=== PATIENT | male | born 1945 | race Caucasian/White ===

== ENCOUNTER 2017-08-09 11:00 | Outpatient (RCR) | payer MEDICARE ==
[~2017-08-09 11:00] MED LIST: AMIODARONE HCL200 MG PO; ANDROGEL2.5 GM TOP; ASPIRIN EC81 MG PO; ATORVASTATIN CA40 MG PO; BUPROPION HCL100 MG PO; CELEBREX200 MG PO; CLONIDINE HCL0.1 MG PO; DAILY VITAMIN1 EAC3 PO; HYDROCHLOROTHIA25 MG PO; LEVOTHYROXINE25 MCG PO; LISINOPRIL10 MG PO; LORATADINE10 M1 PO; LYRICA150 MG PO; MULTAQ400 MG PO; MULTIVITAMINS1 EAC7 PO; NEXIUM40 MG PO; NORCO 7.5-3251 EACH PO; PANTOPRAZOLE SO40 MG PO; PRADAXA75 MG PO; ZOLPIDEM TARTRAT5 MG PO
== END 2017-08-28 ==
LOC: PT 11:00
PROVIDERS: ATTEND Specialist
DX: Z96.641 Presence of right artificial hip joint (principal); Z47.1 Aftercare following joint replacement surgery; M62.81 Muscle weakness (generalized); R26.2 Difficulty in walking, not elsewhere classified
CPT/HCPCS: 97110 ×4; G8978; G8979

== ENCOUNTER → 2018-09-25 | Outpatient (CLI) | payer MEDICARE ==
--- NOTE | 2018-09-26 09:11 | Diagnostic Imaging Report ---
MRI of the right ankle without contrast. MRI of the right foot without contrast. History: Ankle pain. Foot pain. Metatarsalgia. Peroneal tendinitis. Decreased range of motion. Pain worse with working out. Technique: Multiplanar multisequence MRI of the right ankle without contrast. Multiplanar multisequence MRI of the right foot without contrast. Comparison: None. Findings: Ankle MRI: Achilles tendon and plantar fascia: The Achilles tendon and plantar fascia are normal. There is mild retrocalcaneal bursitis is seen on sagittal image 12. Cartilage and bone: Negative for osteochondral lesion of the tibiotalar and subtalar joints. Negative for fracture, osteonecrosis, or stress related edema. Medial ankle: There is scarring of the deltoid ligament complex. The majority of the fibers are intact. There is a mild amount of adjacent soft tissue edema and mild bone marrow edema in the medial malleolus which is thought to be stress related. There is distal posterior tibial tendinosis with a mild amount of fluid surrounding the distal tendon. No tear or retraction is seen. The remainder the medial flexor tendons are intact. Lateral ankle: There is scarring and attenuation of the anterior talofibular and calcaneofibular ligaments. The posterior talofibular ligaments are intact. The syndesmotic ligaments are intact. 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 The peroneus longus tendon is intact. The retinacular tissues are intact. There is no subluxation or full-thickness tear. Anterior ankle: The anterior extensor tendons are normal. Other findings: There is a tibiotalar joint effusion and synovitis. There is partial obliteration of the fat/scarring within the sinus tarsi with adjacent soft tissue edema projecting anteriorly and dorsally. 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 Foot MRI: There is bone marrow edema in the proximal third phalanx with a mild amount of adjacent soft tissue edema. No cortical fracture is seen. This is likely due to a stress response. Mild bone marrow edema is in the adjacent proximal second toe proximal phalanx. The findings are best seen on series 6 image 14 through 16. Scattered degenerative changes are seen about the remaining visualized osseous structures most pronounced at the intermediate cuneiform/second metatarsal articulation. No ligamentous or tendon tear is seen about the foot. The visualized muscles are normal in size, signal intensity and morphology. The visualized neurovascular bundles are intact. Impression: Bone marrow edema in the proximal third phalanx and in the adjacent proximal second toe proximal phalanx with mild adjacent soft tissue edema. This is likely stress related. No cortical fracture is seen. 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 The peroneus longus tendon is intact. The retinacular tissues are intact. There is no subluxation or full-thickness tear. Partial obliteration of the fat/scarring within the sinus tarsi with adjacent soft tissue edema projecting anteriorly and dorsally. 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 Scarring of the deltoid ligament complex. The majority of the fibers are intact. There is a mild amount of adjacent soft tissue edema and mild bone marrow edema in the medial malleolus which is thought to be stress related. There is distal posterior tibial tendinosis with a mild amount of fluid surrounding the distal tendon. No tear or retraction is seen. Scarring and attenuation of the anterior talofibular and calcaneofibular ligaments Signed by: Dr. Demarco Dickinson M.D. on 09/26/2018 9:08 AM
== END ==
LOC: MRI 15:01
PROVIDERS: ATTEND Specialist
DX: M77.41 Metatarsalgia, right foot (principal); M76.71 Peroneal tendinitis, right leg

== ENCOUNTER → 2018-12-26 | Outpatient (RCR) | payer MEDICARE | LOC: PT 12-05 11:04 | PROVIDERS: ATTEND Specialist | DX: M10.072 Idiopathic gout, left ankle and foot (principal); M84.374D Stress fracture, right foot, subsequent encounter for fracture with routine healing; M62.81 Muscle weakness (generalized); R26.2 Difficulty in walking, not elsewhere classified; M79.672 Pain in left foot; M79.671 Pain in right foot; M25.672 Stiffness of left ankle, not elsewhere classified ==

== ENCOUNTER 2019-01-25 10:48 | Outpatient (RCR) | payer MEDICARE | END 2019-01-26 | LOC: PT 10:48 | PROVIDERS: ATTEND Specialist | DX: M84.374D Stress fracture, right foot, subsequent encounter for fracture with routine healing (principal); M10.072 Idiopathic gout, left ankle and foot; M25.572 Pain in left ankle and joints of left foot; M62.81 Muscle weakness (generalized); R26.2 Difficulty in walking, not elsewhere classified; M79.671 Pain in right foot; M79.672 Pain in left foot ==

== ENCOUNTER 2023-12-23 08:00 | Outpatient (RCR) | payer MEDICARE | END 2023-12-27 | LOC: PT 08:00 | PROVIDERS: ATTEND Specialist | DX: M47.816 Spondylosis without myelopathy or radiculopathy, lumbar region (principal); R26.89 Other abnormalities of gait and mobility ==